=== PATIENT | female | born 1970 | race American Indian/Alaskan Native ===

== ENCOUNTER 2019-09-01 08:51 | Emergency (ER) | payer OTHER ==
[2019-09-01] MEDS ORDERED: ASPIRIN 325 MG TAB PO ONE (09:10)
[2019-09-01 09:43] LABS: Basophils % (Auto) 0.5 % (0.0-1.8); Eosinophils # (Auto) 0.1 K/mm3 (0.0-0.4); Eosinophils % (Auto) 1.2 % (0.0-4.3); Hematocrit 39.1 % (30.3-42.9); Hemoglobin 13.3 gm/dl (10.1-14.3); Lymphocytes # (Auto) 2.2 K/mm3 (1.2-5.4); Lymphocytes % (Auto) 30.8 % (13.4-35.0); Mean Corpuscular HGB Conc 34 % (30-34); Mean Corpuscular Volume 95 fl (79-97); Monocytes # (Auto) 0.8 K/mm3 (0.0-0.8); Monocytes % (Auto) 10.8 % (0.0-7.3); Platelet Count 336 K/mm3 (140-440); Red Cell Distribution Width 14.5 % (13.2-15.2)
[2019-09-01] MEDS ORDERED: ALBUTEROL 2.5 MG/3 ML NEBU IH ONE ×2 (09:45→13:05)
[2019-09-01] MEDS ORDERED: methylPREDNISolone Sod Succinate 125 MG/2 ML INJ IV ONE (09:45)
[2019-09-01] MEDS ORDERED: IPRATROPIUM 0.02% NEBU 2.5 ML IH ONE (09:46)
--- NOTE | 2019-09-01 09:57 | Emergency Department Report ---
HPI - General Chief Complaint: Dyspnea/Respdistress Time Seen by Provider: 09/01/19 09:28 - HPI HPI: 48-year-old -[place] female presents to the emergency department with complaint of a one-week history of shortness of breath, productive cough, whe ezing and more lately she now complains of some discomfort in the shoulders and in the back. The patient went to see her primary care physician yesterday and was given a steroid shot and prescribed Claritin, cough medication and a decongestant. Despite compliance with this treatment the patient says the symptoms have not improved. She has a past medical history of autoimmune hepatitis. She says that she recently traveled to [place] about 2 weeks ago. She denies any fever, lower extremity swelling. ED Past Medical Hx - Past Medical History Previous Medical History?: Yes Additional medical history: hepatitis, auto immune disorder - Surgical History Past Surgical History?: Yes Additional Surgical History: gallbladder - Social History Smoking Status: Never Smoker Substance Use Type: None - Medications Home Medications: Home Medications Medication Instructions Recorded Confirmed Last Taken Type ALBUTEROL Inhaler (OR & NICU) 2 puff IH QID PRN #1 inhalation 09/01/19 Unknown Rx [ProAir HFA Inhaler] guaiFENesin ER [Mucinex ER] 600 mg PO Q12H #10 tablet.er 09/01/19 Unknown Rx guaiFENesin/CODEINE [Robitussin AC] 5 ml PO Q6H PRN #100 ml 09/01/19 Unknown Rx predniSONE [Deltasone] 20 mg PO QDAY #5 tab 09/01/19 Unknown Rx ED Review of Systems ROS: Stated complaint: MARTHA/CHEST PAIN Other details as noted in HPI Constitutional: denies: chills, fever Eyes: denies: eye pain, vision change ENT: denies: ear pain, throat pain Respiratory: cough, shortness of breath, wheezing Cardiovascular: denies: palpitations, edema Gastrointestinal: denies: abdominal pain, vomiting Genitourinary: denies: dysuria, discharge Musculoskeletal: back pain, arthralgia. denies: joint swelling Skin: denies: rash, lesions Neurological: denies: headache, weakness Physical Exam - Physical Exam Vital Signs: Vital Signs 09/01/19 09:08 Temperature 97.8 F Pulse Rate 80 Respiratory 20 Rate Blood Pressure 147/107 O2 Sat by Pulse 100 Oximetry Physical Exam: GENERAL: The patient is well-developed well-nourished. HENT: Normocephalic. Atraumatic. Patient has moist mucous membranes. Oropharynx is clear. EYES: Extraocular motions are intact. Pupils equal reactive to light bilaterally. NECK: Supple. Trachea is midline. CHEST/LUNGS: Moderate wheezing throughout the chest. No tachypnea or accessory muscle use. There is no respiratory distress noted. HEART/CARDIOVASCULAR: Regular. There is no tachycardia. There is no murmur. ABDOMEN: Abdomen is soft, nontender. Patient has normal bowel sounds. There is no abdominal distention. SKIN: Skin is warm and dry. NEURO: The patient is awake, alert, and oriented. The patient is cooperative. The patient has no focal neurologic deficits. Normal speech. MUSCULOSKELETAL: There is no tenderness or deformity. There is no evidence of acute injury. ED Course Vital Signs 09/01/19 09:08 Temperature 97.8 F Pulse Rate 80 Respiratory 20 Rate Blood Pressure 147/107 O2 Sat by Pulse 100 Oximetry ED Medical Decision Making - Lab Data Result diagrams: 09/01/19 09:19 09/01/19 09:19 - EKG Data -: EKG Interpreted by Me EKG shows normal: sinus rhythm, axis, intervals, QRS complexes, ST-T waves Rate: normal - EKG Data When compared to previous EKG there are: previous EKG unavailable Interpretation: normal EKG - Radiology Data Radiology results: image reviewed interpreted by me: Chest x-ray does not show any acute process. There are no pleural effusions, ob vious pneumonia and there is no pneumothorax. - Medical Decision Making This patient presents with a one-week history of some shortness of breath, wheezing, coughing and some discomfort into the shoulders and back. A chest x- ray was done that does not show any pneumonia, pleural effusions, pneumothorax, or any other acute process. Patient's labs are mostly unremarkable including a negative troponin and negative d-dimer. EKG did not show any signs of ST e levation MT or significant dysrhythmia. The patient was given 2 different rounds of breathing treatments, steroids, and pain medication. Upon reevaluation she is feeling improved. Overall this appears most consistent with bronchitis or a viral upper respiratory infection. The patient admits that she has a chronic pain patient and that may be part of the reason for her shoulder and back pain. She has been instructed to follow-up with primary care. She will be discharged home with a refill of her albuterol, a steroid course and she has been instructed to return to the ER with any worsening of her symptoms or any acute distress. Vital signs stable throughout her ED course. - Differential Diagnosis pneumonia, bronchitis, PE, viral URI Critical Care Time: No Critical care attestation.: If time is entered above; I have spent that time in minutes in the direct care of this critically ill patient, excluding procedure time. ED Disposition Clinical Impression: Bronchitis Hypertension Qualifiers: Hypertension type: essential hypertension Qualified Code(s): I10 - Essential (primary) hypertension Disposition: TO HOME OR SELFCARE Is pt being admited?: No Condition: Stable Instructions: Acute Bronchitis (ED), Hypertension (ED) Additional Instructions: Please follow-up with your primary care physician in the next few days. Return to the emergency Department with any worsening of your symptoms or any acute distress. You have been prescribed a medication that is sedating and therefore should not be taken prior to driving, working, and responsible for children and in no way should be mixed with alcohol of any quantity. Prescriptions: predniSONE [Deltasone] 20 mg PO QDAY #5 tab guaiFENesin ER [Mucinex ER] 600 mg PO Q12H #10 tablet.er ALBUTEROL Inhaler (OR & NICU) [ProAir HFA Inhaler] 2 puff IH QID PRN #1 inhalation PRN Reason: Shortness Of Breath guaiFENesin/CODEINE [Robitussin AC] 5 ml PO Q6H PRN #100 ml PRN Reason: Cough Referrals: SABIHA MELENDEZ MD [Primary Care Provider] - 2-3 Days Time of Disposition: 14:21
[2019-09-01 10:06] LABS: BUN/Creatinine Ratio 11; Blood Urea Nitrogen 8 mg/dL (7-17); Calcium 8.9 mg/dL (8.4-10.2); Hemolysis Index 7
--- NOTE | 2019-09-01 10:06 | XRay Report ---
CHEST 1 VIEW INDICATION: Chest Pain. COMPARISON: None. FINDINGS: Support devices: None. Heart: Within normal limits. Pulmonary vasculature: Normal. Lungs/Pleura: No acute air space or interstitial disease. Additional findings: None. IMPRESSION: 1. No acute findings. Signer Name: Xavier Lewis MD Signed: 09/01/2019 10:01 AM Workstation Name: [id number]
[2019-09-01] MEDS ORDERED: HYDROmorphone 1 MG/1 ML INJ IV ONE (11:35)
[2019-09-01] MEDS ORDERED: KETOROLAC 30 MG/1 ML INJ IV ONE (11:35)
[2019-09-01 13:59] VITALS: BP 163/96
== END 2019-09-01 14:50 | disposition home or self-care (01) ==
LOC: ED 08:51
DX: J40 Bronchitis, not specified as acute or chronic (principal); I10 Essential (primary) hypertension; Z86.19 Personal history of other infectious and parasitic diseases; Z79.899 Other long term (current) drug therapy
CPT/HCPCS: 36415; 71045; 80048; 84484; 85025; 85379; 93005; 93010; 94640; 96374; 96375; 99284; J1170; J1885; J2930; 94644